=== PATIENT | male | born 1965 | race Caucasian/White ===

== ENCOUNTER 2023-08-04 16:02 | Inpatient (IN) | payer OTHER ==
[~2023-08-04] VITALS: Ht 167.6 cm; Wt 90.3 kg
[2023-08-04 20:00] VITALS: BP 210/121; TEMP 97.3; O2SAT 98
[2023-08-04] MEDS: hydrALAZINE HCL 25 MG TABLET PO PRN (21:21)
[2023-08-04] MEDS ORDERED: MAGNESIUM HYDROXIDE 30 ML UDC PO PRN (21:30)
[2023-08-04] MEDS ORDERED: ONDANSETRON HCL/PF 4 MG/2 ML VIAL IVP PRN (21:30)
[2023-08-04] MEDS ORDERED: Z GUARD REMEDY 4 OZ OINT TP PRN (21:30)
[2023-08-04] MEDS ORDERED: MAG HYDROX/AL HYDROX/SIMETH 30 ML UDC PO PRN (21:30)
[2023-08-04] MEDS ORDERED: ZOLPIDEM TARTRATE 5 MG TABLET PO PRN (21:30)
[2023-08-05] VITALS (9 sets, daily range): BP systolic 105–206; BP diastolic 57–112; TEMP 97.6–99.1; O2SAT 95–99
[2023-08-05] MEDS: hydrALAZINE HCL IV 20 MG VIAL IV PRN (00:42)
[2023-08-05] MEDS: ACETAMINOPHEN 325 MG TABLET PO PRN (00:50)
[2023-08-05] MEDS: ASPIRIN 81 MG TAB.CHEW PO SCH (01:49)
[2023-08-05] MEDS: CLONIDINE HCL 0.1 MG TABLET PO PRN (05:05)
[2023-08-05 07:09] LABS: BASOPHILS % (AUTO) 0.5 % (0.0-2.0); EOSINOPHILS % (AUTO) 10.7 % (0.0-6.0); HEMATOCRIT 40 % (39-51); HEMOGLOBIN 13.1 g/dL (13.5-17.5); LYMPHOCYTES # (AUTO) 1.9 K/uL (0.8-4.8); LYMPHOCYTES % (AUTO) 19.7 % (20.0-44.0); MEAN CORPUSCULAR HEMOGLOBIN 29 PG (26.0-33.0); MEAN CORPUSCULAR HGB CONC 33 g/dl (31.0-36.0); MEAN CORPUSCULAR VOLUME 87 fL (80-96); MONOCYTES # (AUTO) 0.7 K/uL (0.1-1.30); NEUTROPHILS # (AUTO) 5.9 K/uL (1.8-8.9); NEUTROPHILS % (AUTO) 62.1 % (43.0-81.0); PLATELET COUNT (AUTO) 328 K/uL (150-450); RED BLOOD CELL COUNT(AUTO) 4.55 MIL/uL (4.5-6.0); RED CELL DISTRIBUTION WIDTH 14.5 % (11.5-15.0); WHITE BLOOD COUNT (AUTO) 9.5 K/uL (4.3-11.0)
[2023-08-05 07:56] LABS: CALCIUM, SERUM 8.6 mg/dL (8.5-10.1); CREATININE 3.6 mg/dL (0.6-1.3); MAGNESIUM 2.2 mg/dL (1.8-2.4); PHOSPHORUS 3.7 mg/dL (2.5-4.9); POTASSIUM 3.9 mmol/L (3.5-5.1)
[2023-08-05] MEDS: PANTOPRAZOLE 40 MG TABLET.DR PO SCH (08:06)
[2023-08-05] MEDS: AMLODIPINE BESYLATE 10 MG TABLET PO SCH (08:07)
[2023-08-05] MEDS: FUROSEMIDE 40 MG/4 ML VIAL IV SCH (08:07)
[2023-08-05 08:30] LABS: THYROID STIMULATING HORMONE 0.686 uIU/mL (0.358-3.74)
[2023-08-05] MEDS: ISOSORBIDE DINITRATE (20MG) 20 MG TABLET PO SCH (10:46)
[2023-08-05] MEDS: hydrALAZINE HCL 50 MG TABLET PO SCH (10:49)
[2023-08-05 16:44] LABS: CREATININE, URINE 95.5 MG/DL (30.0-125.0); URINE TOTAL PROTEIN 170.2 mg/dL (0-11.9)
[2023-08-05 16:49] LABS: APPEARANCE,URINE CLEAR (CLEAR); BILIRUBIN,URINE NEGATIVE (NEGATIVE); BLOOD, URINE NEGATIVE Ery/uL (NEGATIVE); COLOR,URINE YELLOW (YELLOW); KETONES,URINE NEGATIVE (NEGATIVE); LEUKOCYTE ESTERASE ,URINE NEGATIVE (NEGATIVE); NITRITE, URINE NEGATIVE (NEGATIVE); PH,URINE 5.5 (5.0-8.0); PROTEIN,URINE 2+ mg/dl (NEGATIVE); UGLUCOSE NEGATIVE (NEGATIVE); UROBILINOGEN,URINE 0.2 EU/dL (0.2)
[2023-08-05 17:46] LABS: ADD URINE CULTURE NO; BACTERIA,URINE None seen /HPF (None Seen); RBC,URINE 0-2 /HPF (0-2); WBC,URINE 0-2 /HPF (0-3)
[2023-08-05 20:28] LABS: EOSINOPHIL,URINE None Seen
[2023-08-06] VITALS: BP 138/83; TEMP 98.1; O2SAT 95
[2023-08-06 04:40] VITALS: BP 152/86; TEMP 98; O2SAT 99
[2023-08-06 07:00] LABS: BASOPHILS # (AUTO) 0.1 K/uL (0.0-0.2); BASOPHILS % (AUTO) 0.8 % (0.0-2.0); EOSINOPHILS # (AUTO) 0.6 K/uL (0.0-0.7); EOSINOPHILS % (AUTO) 5.1 % (0.0-6.0); HEMATOCRIT 38 % (39-51); HEMOGLOBIN 12.5 g/dL (13.5-17.5); LYMPHOCYTES % (AUTO) 18.2 % (20.0-44.0); MEAN CORPUSCULAR HEMOGLOBIN 29 PG (26.0-33.0); MEAN CORPUSCULAR HGB CONC 33 g/dl (31.0-36.0); MEAN CORPUSCULAR VOLUME 87 fL (80-96); MONOCYTES # (AUTO) 0.7 K/uL (0.1-1.30); MONOCYTES % (AUTO) 6.1 % (2.0-12.0); NEUTROPHILS # (AUTO) 7.7 K/uL (1.8-8.9); NEUTROPHILS % (AUTO) 69.8 % (43.0-81.0); PLATELET COUNT (AUTO) 328 K/uL (150-450); RED BLOOD CELL COUNT(AUTO) 4.39 MIL/uL (4.5-6.0); RED CELL DISTRIBUTION WIDTH 14.5 % (11.5-15.0); WHITE BLOOD COUNT (AUTO) 11.1 K/uL (4.3-11.0)
[2023-08-06 07:25] LABS: ALBUMIN 2.4 g/dL (3.4-5.0); BILIRUBIN,TOTAL 0.3 mg/dL (0.2-1.0); MAGNESIUM 1.8 mg/dL (1.8-2.4); PHOSPHORUS 4.1 mg/dL (2.5-4.9); POTASSIUM 3.7 mmol/L (3.5-5.1); TOTAL PROTEIN, SERUM 7.1 g/dL (6.4-8.2)
[2023-08-06 07:30] VITALS: BP 187/110; TEMP 98.8; O2SAT 99
[2023-08-06 07:58] LABS: CREATININE 3.5 mg/dL (0.6-1.3)
[2023-08-06 08:16] VITALS: BP 187/110
[2023-08-06] MEDS: ATORVASTATIN 40 MG TABLET PO SCH (08:16)
[2023-08-06] MEDS ORDERED: hydrALAZINE HCL 50 MG TABLET PO SCH (09:00)
[2023-08-06] MEDS ORDERED: ASPI-1169 PO (10:50)
[2023-08-06] MEDS ORDERED: ISOS40TA12 PO (10:50)
[2023-08-06] MEDS ORDERED: ATOR40TA PO (10:50)
[2023-08-06] MEDS ORDERED: HYDR100T27 PO (10:50)
[2023-08-06] MEDS ORDERED: AMLO-213 PO (10:50)
[2023-08-06] MEDS ORDERED: POTASSIUM CHLORIDE 20 MEQ POWDER PACKET PO ONE (11:00)
[2023-08-07 12:10] LABS: PTH, INTACT 117 pg/mL (15-65)
[2023-08-09 09:09] LABS: *SPE A/G RATIO 0.8 (0.7-1.7); *SPE ALBUMIN 2.9 g/dL (2.9-4.4); *SPE ALPHA-1-GLOBULIN 0.3 g/dL (0.0-0.4); *SPE BETA GLOBULIN 1.3 g/dL (0.7-1.3); *SPE GLOBULIN, TOTAL 3.5 g/dL (2.2-3.9); *SPE M-SPIKE Not Observed g/dL (Not Observed); *SPE PROTEIN TOTAL 6.4 g/dL (6.0-8.5)
== END 2023-08-06 12:53 | disposition home or self-care (01) | DRG 194 ==
LOC: TELE 18:16
PROVIDERS: ADMIT Student in an Organized Health Care Education/Training Program; ATTEND Nurse Practitioner Acute Care
DX: I13.0 Hypertensive heart and chronic kidney disease with heart failure and stage 1 through stage 4 chronic kidney disease, or unspecified chronic kidney disease (principal); N17.0 Acute kidney failure with tubular necrosis; I21.4 Non-ST elevation (NSTEMI) myocardial infarction; I16.0 Hypertensive urgency; I50.9 Heart failure, unspecified; N18.9 Chronic kidney disease, unspecified; I25.2 Old myocardial infarction; Z98.61 Coronary angioplasty status; Z91.199 Patient's noncompliance with other medical treatment and regimen due to unspecified reason; Z87.891 Personal history of nicotine dependence; Z91.128 Patient's intentional underdosing of medication regimen for other reason; M89.8X9 Other specified disorders of bone, unspecified site; N52.9 Male erectile dysfunction, unspecified; I25.10 Atherosclerotic heart disease of native coronary artery without angina pectoris; Z79.899 Other long term (current) drug therapy; Z79.82 Long term (current) use of aspirin; D64.9 Anemia, unspecified
CPT/HCPCS: 36415; 71045-TC; 80048-TC; 80053-TC; 80061-TC; 81001; 82550-TC; 82570-TC; 83735-TC; 83970; 84100-TC; 84155; 84165; 84300-TC; 84443-TC; 84484-TC; 85025-TC; 87081-TC; 93307-TC; 93970-TC; G0378; J0360; J1940